=== PATIENT | male | born 1965 | race Caucasian/White ===

== ENCOUNTER → 2018-09-09 | Emergency (ER) | payer OTHER, BC ==
--- NOTE | 2018-09-09 21:39 | PDOC ---
Rapid Medical Evaluation Chief Complaint: Chest Pain Time Seen by Provider: 09/09/18 21:36 Medical Evaluation: 09/09/18 21:37 I did a brief in person evaluation on this patient. CC: CP HPI: Pt complains of HTN at home, on meds,and left sided CP. Denies CV hx PE: Skin: Clear Lungs: Clear Heart:RRR Abd: soft, non tender MS: Moves all extremities without difficulty Neuro: alert Psych: appropriate affect. I have ordered: Cv protocol Pt will proceed to main ED for further evaluation. Discharge Disposition - Diagnosis Chest pain Qualifiers: Chest pain type: unspecified Qualified Code(s): R07.9 - Chest pain, unspecified - Referrals - Patient Instructions - Post Discharge Activity
[2018-09-09 21:41] VITALS: BP 127/84; PULSE 82; TEMP 97.8; BMI 30.5
--- NOTE | 2018-09-10 02:55 | PDOC ---
History of Present Illness - General Chief Complaint: Chest Pain Stated Complaint: HIGH BLOOD PRESURE Time Seen by Provider: 09/09/18 21:36 Past History - Past Medical History Allergies/Adverse Reactions: Allergies Allergy/AdvReac Type Severity Reaction Status Date / Time No Known Allergies Allergy Verified 09/09/18 21:41 COPD: No HTN: Yes - Suicide/Smoking/Psychosocial Hx Smoking History: Never smoked Have you smoked in the past 12 months: No Information on smoking cessation initiated: No Hx Alcohol Use: No Drug/Substance Use Hx: No *Physical Exam - Vital Signs Last Vital Signs Temp Pulse Resp BP Pulse Ox 97.8 F 82 18 127/84 100 09/09/18 21:38 09/09/18 21:38 09/09/18 21:38 09/09/18 21:38 09/09/18 21:38 *DC/Admit/Observation/Transfer Diagnosis at time of Disposition: Chest pain Qualifiers: Chest pain type: unspecified Qualified Code(s): R07.9 - Chest pain, unspecified - Referrals Referrals: Will Kahn MD [Primary Care Provider] - - Patient Instructions - Post Discharge Activity
--- NOTE | 2018-09-10 10:26 | EKG ---
Test Reason : Blood Pressure : / mmHG Vent. Rate : 078 BPM Atrial Rate : 078 BPM P-R Int : 194 ms QRS Dur : 122 ms QT Int : 400 ms P-R-T Axes : 046 010 028 degrees QTc Int : 456 ms POOR DATA QUALITY, INTERPRETATION MAY BE ADVERSELY AFFECTED NORMAL SINUS RHYTHM NON-SPECIFIC INTRA-VENTRICULAR CONDUCTION DELAY BORDERLINE ECG NO PREVIOUS ECGS AVAILABLE Confirmed by FRANKIE JERNIGAN, AXEL ([id number]) on 09/10/2018 10:25:59 AM Referred By: Confirmed By:AXEL DAVID MD
== END | disposition left against medical advice (07) ==
LOC: JER 21:30
DX: R07.9 Chest pain, unspecified (principal); I10 Essential (primary) hypertension
CPT/HCPCS: 93005; 93010; 99281-25

== ENCOUNTER 2020-12-11 03:47 | Emergency (ER) | payer OTHER ==
[2020-12-11 04:05] VITALS: BMI 31.6
[2020-12-11] MEDS ORDERED: ACETAMINOPHEN 325 MG TABLET (FP) PO ONE (05:01)
[2020-12-11] MEDS ORDERED: ACETAMINOPHEN 325 MG TABLET (FP) ONE (05:04)
[2020-12-11 05:33] LABS: EOS % 3.1 % (0-4.5); HEMATOCRIT 40.5 % (35.4-49); HEMOGLOBIN 13.3 GM/dL (11.7-16.9); LYMPH % 40.7 % (8-40); MCH 28.6 pg (25.7-33.7); MCHC 32.8 g/dl (32.0-35.9); MEAN CELL VOLUME 87.2 fl (80-96); MEAN PLT VOLUME 8.2 fl (7.5-11.1); MONO % 10.9 % (3.8-10.2); NEUT % 44.3 % (42.8-82.8); PLATELET COUNT 222 10^3/uL (134-434); RBC 4.64 M/mm3 (4.00-5.60); RDW 13.5 % (11.9-15.9); WHITE BLOOD COUNT 5.1 K/mm3 (4.0-10.0)
[2020-12-11 05:41] LABS: INR 0.97 (0.83-1.09)
[2020-12-11 05:44] LABS: ACTIVATED PTT 30.7 SECONDS (25.2-36.5)
[2020-12-11 05:51] LABS: CHLORIDE 110 mmol/L (98-107); SODIUM 141 mmol/L (136-145)
[2020-12-11 05:53] LABS: ALBUMIN 3.7 g/dl (3.4-5.0); CALCIUM 8.3 mg/dL (8.5-10.1)
[2020-12-11 05:54] LABS: ANION GAP 5 MMOL/L (8-16); BLOOD UREA NITROGEN 10.8 mg/dL (7-18); CO2 26 mmol/L (21-32); GLUCOSE,RANDOM 106 mg/dL (74-106); LIPASE 210 U/L (73-393)
[2020-12-11 05:57] LABS: SGOT/AST 20 U/L (15-37); SGPT/ALT 46 U/L (13-61)
[2020-12-11 05:58] LABS: BILIRUBIN,TOTAL 0.2 mg/dL (0.2-1)
[2020-12-11 05:59] LABS: ALK PHOS 46 U/L (45-117)
[2020-12-11 11:40] VITALS: BP 125/75; PULSE 68; TEMP 98
== END 2020-12-11 11:35 | disposition home or self-care (01) ==
LOC: JER 03:47
DX: R10.11 Right upper quadrant pain (principal)
CPT/HCPCS: 36415; 76705-TC; 80053; 82550; 83690; 84484; 85025; 85610; 85730; 86850; 86900; 86901; 93005; 93010; 99285-25; C9803; U0003; U0005

== ENCOUNTER 2021-02-17 04:39 | Day surgery (SDC) | payer OTHER ==
[2021-02-15 18:10] VITALS: BMI 30.3
[2021-02-17] MEDS ORDERED: ACETAMINOPHEN INJECTION 100 ML IVPB ONE (09:11)
[2021-02-17] MEDS ORDERED: MIDAZOLAM HCL 2 MG/2 ML SINGLE DOSE VIAL ONE (09:22)
[2021-02-17] MEDS ORDERED: SUCCINYLCHOLINE CHLORIDE 200 MG/10 ML SYRINGE ONE ×2 (09:36→11:05)
[2021-02-17] MEDS ORDERED: PROPOFOL 20 ML ONE ×3 (09:38)
[2021-02-17] MEDS ORDERED: fentaNYL CITRATE 250 MCG/5 ML VIAL ONE (09:38)
[2021-02-17] MEDS ORDERED: ceFAZolin SODIUM 1 GM VIAL IVPB ONE (09:55)
[2021-02-17] MEDS ORDERED: BUPIVACAINE HCL/PF 0.5% (5MG/ML) 10 ML VIAL IJ ONE ×2 (10:06)
[2021-02-17] MEDS ORDERED: oxyCODONE HCL 5 MG TABLET PO PRN ×2 (15:36)
[2021-02-17] MEDS ORDERED: LACTATED RINGERS SOLUTION 1,000 ML IV SCH (15:45)
[2021-02-17 18:44] VITALS: BP 115/77; PULSE 73; TEMP 98
== END 2021-02-17 16:30 | disposition home or self-care (01) ==
LOC: JASU-SURG 04:39
PROVIDERS: ATTEND Surgery
PROC: 0WQF0ZZ Repair Abdominal Wall, Open Approach (ICD-10-PCS; 2021-02-17)
PROC: 0FT44ZZ Resection of Gallbladder, Percutaneous Endoscopic Approach (ICD-10-PCS; principal; 2021-02-17 09:00)
DX: K80.10 Calculus of gallbladder with chronic cholecystitis without obstruction (principal); K42.9 Umbilical hernia without obstruction or gangrene
CPT/HCPCS: 82962; 88304-TC; 94760; J0131

== ENCOUNTER 2021-06-13 23:37 | Observation (INO) | payer OTHER, BC ==
[2021-06-13 23:41] VITALS: BMI 30.9
[2021-06-14] MEDS ORDERED: ASPIRIN 81 MG CHEWABLE TABLETS PO ONE (00:40)
[2021-06-14] MEDS ORDERED: ASPIRIN 81 MG CHEWABLE TABLETS ONE (01:14)
[2021-06-14 01:18] LABS: BASO % 0.9 % (0-2.0); EOS % 2.2 % (0-4.5); HEMOGLOBIN 13.4 GM/dL (11.7-16.9); LYMPH % 40.7 % (8-40); MCH 28.8 pg (25.7-33.7); MCHC 33.4 g/dl (32.0-35.9); MEAN CELL VOLUME 86.2 fl (80-96); MEAN PLT VOLUME 7.7 fl (7.5-11.1); NEUT % 47.2 % (42.8-82.8); PLATELET COUNT 209 10^3/uL (134-434); RBC 4.64 M/mm3 (4.00-5.60); RDW 13.3 % (11.9-15.9); WHITE BLOOD COUNT 6.3 K/mm3 (4.0-10.0)
[2021-06-14 02:06] LABS: INR 1.05 (0.83-1.09); PROTHROMBIN TIME (PATIENT) 12.1 SEC (9.7-13.0)
[2021-06-14 02:09] LABS: ACTIVATED PTT 32.3 SECONDS (25.2-36.5)
[2021-06-14 02:21] LABS: ALBUMIN 3.8 g/dl (3.4-5.0); ALK PHOS 50 U/L (45-117); ANION GAP 3 MMOL/L (8-16); BILIRUBIN,TOTAL 0.3 mg/dL (0.2-1); BLOOD UREA NITROGEN 17.9 mg/dL (7-18); CALCIUM 8.5 mg/dL (8.5-10.1); CHLORIDE 110 mmol/L (98-107); CO2 30 mmol/L (21-32); CREATININE 1.4 mg/dL (0.55-1.3); GLUCOSE,RANDOM 123 mg/dL (74-106); MAGNESIUM 2.4 mg/dL (1.8-2.4); SGOT/AST 19 U/L (15-37); SGPT/ALT 49 U/L (13-61); SODIUM 143 mmol/L (136-145); TOT PROT 7.3 g/dl (6.4-8.2)
[2021-06-14] MEDS ORDERED: SODIUM CHLORIDE 0.9% 500 ML INFUS.BAG IV ONE (02:22)
[2021-06-14] MEDS ORDERED: POLYETHYLENE GLYCOL (HEALTHYLAX) 3350 17 GM PACKET PO PRN (04:09)
[2021-06-14] MEDS ORDERED: ACETAMINOPHEN 325 MG TABLET (FP) PO PRN (04:09)
[2021-06-14] MEDS ORDERED: ONDANSETRON 4 MG/2 ML VIAL IVPUSH PRN (04:15)
[2021-06-14 06:23] LABS: EPI CELLS 0 /uL (0-25.1); HYALINE CASTS 0 /uL (0-3.1); PH,URINE 5.5 (5.0-8.0); URINE APPEARANCE CLEAR; URINE BACTERIA 0 /uL (0-1359); URINE BILIRUBIN NEGATIVE (NEGATIVE); URINE COLOR YELLOW; URINE GLUCOSE (UA) NEGATIVE (NEGATIVE); URINE KETONE NEGATIVE (NEGATIVE); URINE LEUK ESTERASE NEGATIVE (NEGATIVE); URINE NITRITE NEGATIVE (NEGATIVE); URINE PROTEIN NEGATIVE (NEGATIVE); URINE RBC 11 /uL (0-23.9); URINE UROBILINOGEN 0.2 mg/dL (0.2-1.0); URINE WBC 1 /uL (0-25.8)
[2021-06-14] MEDS ORDERED: METOPROLOL TARTRATE 50 MG TABLET (FP) ONE (09:02)
[2021-06-14] MEDS ORDERED: FAMOTIDINE 20 MG TABLET ONE (09:02)
[2021-06-14] MEDS ORDERED: ENOXAPARIN NA (PORCINE) 40 MG/0.4 ML DISP.SYRIN SQ ONE (09:02)
[2021-06-14] MEDS ORDERED: LOSARTAN POTASSIUM 50 MG TABLET ONE (09:02)
[2021-06-14] MEDS ORDERED: ENOXAPARIN NA (PORCINE) 40 MG/0.4 ML DISP.SYRIN SQ SCH (10:00)
[2021-06-14] MEDS ORDERED: METOPROLOL TARTRATE 50 MG TABLET (FP) PO SCH (10:00)
[2021-06-14] MEDS ORDERED: FAMOTIDINE 20 MG TABLET PO SCH (10:00)
[2021-06-14] MEDS ORDERED: LOSARTAN POTASSIUM 50 MG TABLET PO SCH (10:00)
[2021-06-14 10:11] VITALS: BP 136/87; PULSE 71; TEMP 97.8
== END 2021-06-14 13:15 | disposition home or self-care (01) ==
LOC: JER 23:37 → JERBED 06-14 00:53
PROVIDERS: ADMIT Internal Medicine; ATTEND Family Medicine
PROC: 3E023GC Introduction of Other Therapeutic Substance into Muscle, Percutaneous Approach (ICD-10-PCS; principal; 2021-06-14)
PROC: 3E0337Z Introduction of Electrolytic and Water Balance Substance into Peripheral Vein, Percutaneous Approach (ICD-10-PCS; 2021-06-14)
DX: R07.9 Chest pain, unspecified (principal); I10 Essential (primary) hypertension; E66.9 Obesity, unspecified; Z68.31 Body mass index [BMI] 31.0-31.9, adult; Z82.49 Family history of ischemic heart disease and other diseases of the circulatory system; N17.9 Acute kidney failure, unspecified; Z29.9 Encounter for prophylactic measures, unspecified; Z86.79 Personal history of other diseases of the circulatory system
CPT/HCPCS: 36415; 71046-TC-FY; 80053; 81003; 83735; 84484; 85025; 85610; 85730; 87086; 93005; 93010; 96372; 99285-25; C9803; G0378; U0003; U0005